=== PATIENT | female | born 1930 | race Asian ===

== ENCOUNTER 2018-04-16 11:02 | Observation (INO) | payer MEDICARE ==
[~2018-04-16] VITALS: Ht 152.4 cm; Wt 36.3 kg
[2018-04-16] MEDS ORDERED: SODIUM CHLORIDE 0.9% 1,000 ML IVB ONE (11:46)
[2018-04-16 12:55] LABS: BUN/Creatinine Ratio 21.4; Potassium 3.9 mmol/L (3.5-5.1)
[2018-04-16 12:57] LABS: Basophils # (auto) 0 uL; Basophils % (auto) 0.6 % (0.0-2.0); Eosinophils # (auto) 0 uL; Eosinophils % (auto) 0.8 % (0.0-7.0); Hematocrit 38.7 % (36.0-46.0); Hemoglobin 13.2 g/dL (12.2-16.2); Lymphocytes # (auto) 1.3 uL; Lymphocytes % (auto) 31.4 % (10.0-50.0); Mean Corpuscular Hemoglobin 31.7 pg (28.0-32.0); Mean Corpuscular Hgb Conc. 34.2 g/dL (32.0-36.0); Mean Corpuscular Volume 92.9 fL (80.0-100.0); Monocytes # (auto) 0.3 uL; Monocytes % (auto) 6.8 % (0.0-12.0); Neutrophils # (auto) 2.5 uL; Neutrophils % (auto) 60.4 % (37.0-80.0); Nucleated Red Blood Cells % 0.1 %; Platelet Count (auto) 129 10^3/uL (140-450); Red Blood Cells 4.17 10^6/uL (4.0-5.20); Red Cell Distribution Width 13.7 % (11.8-14.3); White Blood Cell 4.1 10^3/uL (4.4-10.8)
[2018-04-16 12:58] LABS: Bilirubin, Total 0.6 mg/dL (0.2-1.0); Total Protein 6.4 g/dL (6.4-8.2)
[2018-04-16 13:18] LABS: INR 0.93 (0.9-1.15); Partial Thromboplastin Time 26.9 sec (23.78-33.04)
[2018-04-16 13:30] LABS: Magnesium 2.1 mg/dL (1.6-2.6)
[2018-04-16 13:47] VITALS: BP 165/99
[2018-04-16 14:13] LABS: Urine Bacteria NONE SEEN /hpf (None Seen); Urine Blood 1+ /uL (Negative); Urine Specific Gravity 1.003 (1.001-1.035); Urine WBC 1 /hpf (0 - 5)
== END 2018-04-16 15:58 | disposition home or self-care (01) | DRG 392 ==
LOC: ER 11:02 → OVERFLOW 11:03 → ER 15:58
PROVIDERS: ADMIT Family Medicine; ATTEND Family Medicine
DX: R10.30 Lower abdominal pain, unspecified (principal); N20.0 Calculus of kidney; R55 Syncope and collapse; S00.83XA Contusion of other part of head, initial encounter; I73.9 Peripheral vascular disease, unspecified; I10 Essential (primary) hypertension; E03.9 Hypothyroidism, unspecified; E78.5 Hyperlipidemia, unspecified; X58.XXXA Exposure to other specified factors, initial encounter; Z82.49 Family history of ischemic heart disease and other diseases of the circulatory system; Z86.718 Personal history of other venous thrombosis and embolism
CPT/HCPCS: 36415; 70450; 71045; 74176; 80053; 81001; 82150; 83690; 83735; 85025; 85610; 85730; 93005; 99285; G0378; J7030